=== PATIENT | male | born 1980 | race African-American/Black ===

== ENCOUNTER → 2024-10-20 07:55 | Outpatient (CLI) | payer BC, SELFPAY ==
[2024-10-20 10:35] LABS: Urine N gonorrhoeae NOT DETECTED
[2024-10-20 10:36] LABS: Urine Chlamydia NOT DETECTED
== END ==
PROVIDERS: Visit Provider Chiropractor
DX: R30.0 Dysuria (principal); R36.9 Urethral discharge, unspecified
CPT/HCPCS: 87086; 87210; 87491; 87591